=== PATIENT | female | born 1930 | race Caucasian/White ===

== ENCOUNTER → 2018-03-03 | Outpatient (CLI) | payer MEDICARE ==
[~2018-03-03] MED LIST: ECOTRIN81 M1 PO; Z.0.EXFORGE HCT 101 PO; Z.0.OMEPRAZOLE20 MG PO
--- NOTE | 2018-03-03 12:20 | Diagnostic Imaging Report ---
PROCEDURE:X-RAY MODIFIED BARIUM SWALLOW COMPARISON:None. INDICATIONS:Not provided. DISCUSSION:Fluoroscopic examination was performed in conjunction with speech pathology, during swallowing of a variety of thin and thick liquid consistencies. CONCLUSION:Laryngeal penetration and aspiration was noted upon thin liquid consistencies. Please see the report from speech pathology for complete details. Dictated by: Gerard Olivarez M.D. on 03/03/2018 at 12:25 Electronically approved by: Gerard Olivarez M.D. on 03/03/2018 at 12:25
== END ==
LOC: DX 10:24
PROVIDERS: ATTEND Otolaryngology
DX: K21.9 Gastro-esophageal reflux disease without esophagitis (principal)
CPT/HCPCS: 74230; 92611; G8996; G8997

== ENCOUNTER 2018-06-30 11:24 | Outpatient (RCR) | payer MEDICARE | END 2018-07-03 | LOC: ST 11:24 | PROVIDERS: ATTEND Otolaryngology | DX: R13.13 Dysphagia, pharyngeal phase (principal); K21.9 Gastro-esophageal reflux disease without esophagitis | CPT/HCPCS: 92610; 97139; G8996; G8997 ==

== ENCOUNTER 2018-07-23 11:54 | Outpatient (RCR) | payer MEDICARE | END 2018-08-03 | LOC: ST 11:54 | PROVIDERS: ATTEND Otolaryngology | DX: R13.13 Dysphagia, pharyngeal phase (principal); K21.9 Gastro-esophageal reflux disease without esophagitis ==

== ENCOUNTER 2018-08-20 11:59 | Outpatient (RCR) | payer MEDICARE ==
--- NOTE | 2018-08-07 14:04 | NUR ---
Clinical Swallow Re-Evaluation/Treatment Session Patient is an 87 year old female with diagnosis of dysphagia and GERD. Pt participated in a modified barium swallow study on 03/03/18. Pt presented with mild pharyngeal dysphagia c/b consistent premature spillage to the level of the vallecula, intermittent trace aspiration of thin liquids during the swallow, and minimal pharyngeal residue after the swallow. Dysphagia was judged to be secondary to decreased hyolaryngeal excursion, decreased coordination of the swallow, and decreased pharyngeal constriction during the swallow. Recommendation was made for dysphagia therapy to increase strength and coordination of swallow. Patient was seen today in the outpatient clinic for treatment of Neuromuscular Electrical Stimulation (NMES) with VitalStim Therapy and traditional dysphagia therapy with pharyngeal exercises. Pt delayed services until after she returned from an extended trip to [place]. Pt was seen with no family present. Oral motor exam revealed function that was grossly within normal limits. Patient tolerates room air. Hearing appeared to be WFL. Speech and language skills were functional. Patient reported no change in her swallow skills since the modified barium swallow study. Provided extensive education re: basic anatomy and physiology of swallow structures, need for therapy, purpose of exercises and NMES, and future plan of care. Pt indicated understanding. Pt was given water and hard candy. Pt was instructed to take small sips and swallow hard, feeling all the muscles in her throat contract. Placement 2b was used to target the mylohyoid muscle, the sternohyoid muscle, the omohyoid muscle, the geniohyoid muscle, the thyrohyoid muscle, and the superior laryngeal nerve. Channel 1 of the electrodes was aligned along midline over the geniohyoid belly and channel 2 of the electrodes was aligned horizontally on either side of the thyroid notch. This placement was used to improve base of tongue strength, hyolaryngeal excursion, and UES opening.Pt initially tolerated 7.5 mA, but as the session progressed pt tolerated 22.5 mA. Pt received 60 minutes of stimulation. Cough noted X 0, throat clear X 2. During NMES an exercise program was presented, demonstrated, and discussed. Pt completed the exercises with minimal assistance. A home program was assigned. Pt verbalized understanding of the home exercise program. Education provided as indicated. All questions were answered. Impressions: Pt tolerated initial session of NMES well. She continues to report and demonstrate s/s of aspiration during meals which significantly interferes with her quality of life. Pt is an excellent candidate for dysphagia exercises and NMES for improvement of strength and coordination of swallow. Recommendations: 1. Dysphagia therapy to include traditional exercises and NMES 3X/week for 2 weeks for a total of 4 additional treatment sessions 2. Home exercise program 3. Repeat MBS in 2-3 weeks with new goals to be determined at that time Nursing Home Goal: Pt will tolerate least restrictive diet without s/s of aspiration as judged by an objective evaluation. Short Term Goals: 1. Pt will complete 3 repetitions of a set of dysphagia exercises to improve laryngeal elevation, base of tongue retraction, and laryngeal closure, 10 repetitions per exercise, with minimal cues. 2. Pt will tolerate NMES for 45 60 minutes with no clinical s/s of aspiration to improve strength of pharyngeal constrictors, hyolaryngeal excursion, and safety with po intake. 3. Pt will complete home dysphagia exercise program targeting laryngeal elevation, base of tongue strength, and cricopharyngeal function independently. 4. Pt will follow aspiration precautions with independence. 5. Pt will participate in a repeat Modified Barium Swallow study to objectively re-assess swallow safety and function and determine safest diet. Pia Mendoza M.S. CCC-SPECIAL OFFICER Date of Session: 08/07/18 Dysphagia Evaluation X 64 minutes Edilberto Madrigal MD date G-code Modifiers: Current: [id number] Goal: [id number] NOMS Rating for Swallowing: Level 6
== END 2018-09-03 ==
LOC: ST 11:59
PROVIDERS: ATTEND Otolaryngology
DX: R13.10 Dysphagia, unspecified (principal); K21.9 Gastro-esophageal reflux disease without esophagitis
CPT/HCPCS: 92526 ×5; 97139; G8996; G8997

== ENCOUNTER → 2018-08-25 | Outpatient (CLI) | payer MEDICARE ==
--- NOTE | 2018-08-25 14:18 | Diagnostic Imaging Report ---
PROCEDURE: X-RAY MODIFIED BARIUM SWALLOW COMPARISON: None. INDICATION: Dysphagia, GERD Radiation Details: Fluoroscopy time: 1.7 minutes Cumulative dose: 10.4 mGy DISCUSSION: Fluoroscopic examination was performed in conjunction with speech pathology during swallowing a variety of thin and thick liquid consistencies. Provided images demonstrate laryngeal penetration. There is minimal aspiration with one swallow of thin liquids. No additional aspiration is demonstrated on additional sequences. CONCLUSION: Modified barium swallow demonstrating laryngeal penetration. Minimal aspiration on one swallow sequence of thin liquids, not seen on additional swallows. Please refer to the speech pathology report for further details. Signed by: Dr. Jonel Crum MD on 08/25/2018 2:15 PM
== END ==
LOC: DX 12:18
PROVIDERS: ATTEND Otolaryngology
DX: R13.13 Dysphagia, pharyngeal phase (principal); K21.9 Gastro-esophageal reflux disease without esophagitis
CPT/HCPCS: 74230

== ENCOUNTER → 2019-01-26 | Outpatient (CLI) | payer MEDICARE ==
--- NOTE | 2019-01-26 18:13 | Diagnostic Imaging Report ---
Bone Scan, delayed phase INDICATION: History of breast cancer in 2006. S/p recent falls. Now with leg pain. Had spinal surgery in 2013. COMPARISON: None REPORT: Approximately 3 hours following intravenous administration of 26 mCi of Tc-99m MDP, delayed total body images in the anterior and posterior projections and selected spot images were obtained. Degenerative changes are seen in the lower cervical spine, diffusely throughout the mid thoracic spine, in the right sternoclavicular joint and in the feet. A small focus of markedly increased tracer at the medial aspect of the left humeral head is nonspecific. Increased tracer activity on the left side of L2 and L3 is also nonspecific. Otherwise, distribution of tracer activity is unremarkable throughout the skeletal system. No abnormal accumulation of tracer is seen in the soft tissues or urinary tract. IMPRESSION: 1. Nonspecific osteoblastic lesion in the medial aspect of the left humeral head could be due to a posttraumatic, inflammatory or neoplastic process. Correlative imaging is warranted. 2. Osteoblastic processes in L2 and L3 favor degenerative or posttraumatic change given history of spinal surgery. Neoplasm is much less likely but correlative imaging is warranted. Signed by: Dr. Meli Catherine M.D. on 01/26/2019 6:10 PM
== END ==
LOC: NM 12:32
PROVIDERS: ATTEND Family Medicine
DX: Z85.3 Personal history of malignant neoplasm of breast (principal)
CPT/HCPCS: 78306; A9503

== ENCOUNTER → 2019-03-25 | Outpatient (CLI) | payer MEDICARE ==
--- NOTE | 2019-04-14 09:13 | Diagnostic Imaging Report ---
#[id number] - [id number] #BILATERAL DIGITAL SCREENING MAMMOGRAM WITH CAD: 03/25/2019 CLINICAL: Routine screening. No prior exams were available for comparison. Current study contains 5 films. The tissue of both breasts is predominantly fatty. Current study was also evaluated with a Computer Aided Detection (CAD) system. There are benign vascular calcifications in both breasts. Benign appearing calcifications are noted bilaterally. Right breast post-op changes are present. No significant masses, calcifications, or other findings are seen in either breast. IMPRESSION: BENIGN Previous films are not available, we will issue an addendum when films are reviewed. There is no mammographic evidence of malignancy. A 1 year screening mammogram is recommended. The patient will be notified by letter of the results. EYAD BENITES M.D. ct/penrad:04/13/2019 10:31:31 Door Puller: Meli IQBAL)Bertha), [facility] letter sent: Normal Exam Mammogram BI-RADS: 2 Benign
== END ==
LOC: MAMMO 12:57
PROVIDERS: ATTEND Family Medicine
DX: Z12.31 Encounter for screening mammogram for malignant neoplasm of breast (principal)
CPT/HCPCS: 77067

== ENCOUNTER → 2019-04-14 | Outpatient (CLI) | payer MEDICARE ==
--- NOTE | 2019-04-14 14:11 | Diagnostic Imaging Report ---
EXAM: Renal Ultrasound INDICATION: ^[id number] ^[id number] ^NOCTURIA/UTI COMPARISON: None TECHNIQUE: Transverse and longitudinal images of the kidneys and bladder were obtained. FINDINGS: Right Kidney: Length: 9.9 cm Appearance: Normal echogenicity. Collecting system: No hydronephrosis Stones: None Cyst/Mass: 2.0 x 1.7 x 1.4 cm upper pole simple cyst. 1.0 x 1.0 x 1.1 cm lower pole simple cyst. Left Kidney: Length: 10.2 cm Appearance: Normal echogenicity. Collecting system: No hydronephrosis Stones: None Cyst/Mass: None Bladder: No mass or calculi. Bilateral ureteral jets seen. Prevoid volume estimate of 154cc. IMPRESSION: No hydronephrosis or renal calculi. Right renal simple cysts as above. Signed by: Ray Underwood MD on 04/14/2019 2:08 PM
== END ==
LOC: US 10:18
PROVIDERS: ATTEND Urology
DX: R35.1 Nocturia (principal); N39.0 Urinary tract infection, site not specified
CPT/HCPCS: 76770